=== PATIENT | male | born 1940 | race Caucasian/White ===

== ENCOUNTER → 2017-12-12 13:54 | Outpatient (CLI) | payer MEDICARE, SELFPAY ==
--- NOTE | 2017-12-12 | DI.ECHO.S_ITS ---
[facility]+ [facility] +---------+ : : [address] : [address] : : : : [id number] : : : : Phone: [phone]+ Echocardiogram Report + + :Name: ZANDER INGRAM Study Date: 12/12/2017 Height: 70 in : :[facility] Weight: 194 lb : : Gender: Male BSA: 2.1 m2 : :: 1940 Age: 77 yrs BP: 120/68 mmHg: :Reason For Study: AFIB : :Ordering Physician: Janine : :Sean Performed By: Trinidad Moncada : :Referring: ETHAN CEE : + + Interpretation Summary Afib with controlled rate. Normal LV size, wall thickness, wall motion and LV systolic function. EF is 55-60%. Severe biatrial enlargement. Aortic sclerosis withoput stenosis. Compared to prior study 01/26/2016 aortic sclerosis has gotten worse. Procedure: A two-dimensional transthoracic echocardiogram with color flow and Doppler was performed. The study quality was technically good. Comparison is made with the echocardiogram of 01/26/2016. The patient was in atrial fibrillation with heart rates between 62-80 bpm during the exam. Left Ventricle: The left ventricle is normal in size. There is normal left ventricular wall thickness. The ejection fraction is estimated to be 55-60%. Diastolic function could not be accurately assessed due to atrial fibrillation. Right Ventricle: The right ventricle is moderately dilated. Right ventricular systolic function is mildly reduced. Atria: There is marked biatrial enlargement. Both atria have significantly increased in size since the prior echo exam. There is no Doppler evidence for an interatrial shunt. Mitral Valve: There is a flat closure plane of the the mitral valve leaflets. There is mild mitral regurgitation. Aortic Valve: The aortic valve is trileaflet. The aortic valve opens well. The aortic valve is mildly calcified. There is no aortic valve stenosis. There is trace aortic regurgitation. Tricuspid Valve: The tricuspid valve leaflets are thin and pliable. There is moderate to severe tricuspid regurgitation. The right ventricular systolic pressure is estimated at 34 mmHg assuming a right atrial pressure of 15 mm Hg. Pulmonic Valve: The pulmonic valve is normal in structure and function. There is a trace or physiologic amount of pulmonic regurgitation. Great Vessels: The aortic root is normal size. The ascending aorta is normal in size. The aortic arch is normal in size. The pulmonary artery is normal size. The IVC is dilated (diameter is greater than 2.1 cm) and it collapses less than 50% with a sniff. This suggests a high right atrial pressure of 15 mm Hg. Pericardium/ Pleura There is no pericardial effusion. There is no pleural effusion. MMode/2D Measurements & Calculations LVIDd: 5.2 cm LVOT diam: 2.2 cm LVIDs: 3.7 cm Ao root diam: 3.7 cm FS: 29.7 % asc Aorta Diam: 3.3 cm EPSS: 0.51 cm Ao Arch Diam (distal): 2.5 cm IVSd: 0.75 cm LVPWd: 0.84 cm LV leach. diameter/BSA (cm/m^2): 2.5 LV sys. diameter/BSA (cm/m^2): 1.8 LA A2 area: 57.1 cm2 RA long axis: 10.5 cm LA A4 area: 57.1 cm2 RA area: 76.4 cm2 LA length (vol): 9.0 cm RA vol: 470.5 ml LA vol: 309.0 ml RA : 228.3 ml/m2 LA vol index: 150.0 ml/m2 IVC diam: 3.2 cm RVD1 (basal): 5.7 cm TAPSE: 1.4 cm Doppler Measurements & Calculations Ao V2 max: 123.8 cm/sec LVOT Max Brian: 92.7 cm/sec Ao V2 mean: 90.0 cm/sec LV V1 max P.4 mmHg Ao max P.1 mmHg LV V1 VTI: 15.9 cm Ao mean P.5 mmHg ANANYA(I,D): 2.7 cm2 Ao V2 VTI: 23.0 cm ANANYA(V,D): 2.9 cm2 sev ratio: 0.69 ANANYA indexed to BSA (cm^2/m^2): 1.3 MV E max brian: 116.4 cm/sec TR max brian: 217.6 cm/sec MV dec time: 0.13 sec TR max P.0 mmHg PA V2 max: 78.4 cm/sec PA V2 mean: 50.6 cm/sec PA mean P.2 mmHg Reading Physician:12:44 PM
== END ==
PROVIDERS: PCP Internal Medicine; Visit Provider Orthopaedic Surgery
DX: I48.91 Unspecified atrial fibrillation (principal)
CPT/HCPCS: 93306

== ENCOUNTER → 2018-03-27 08:51 | Outpatient (CLI) | payer MEDICARE, SELFPAY ==
--- NOTE | 2018-03-27 | DI.CT.S_ITS ---
PROCEDURE: CT ABDOMEN PELVIS W CON INDICATIONS: ABDOMINAL PAIN TECHNIQUE: After the administration of oral and intravenous contrast, 5 mm thick sections acquired from the diaphragms to the symphysis. 5 mm thick coronal and sagittal reformats were performed. For radiation dose reduction, the following was used: automated exposure control, adjustment of mA and/or kV according to patient size. COMPARISON: None. FINDINGS: Image quality: Excellent. ABDOMEN: Lung bases: Lung bases are clear. Heart size is enlarged. Solid organs: Liver is demonstrates a 40 mm AP by 29 mm transverse by 27 mm craniocaudal focus of enhancement with what appears to be a central area of decreased enhancement. No priors are available for comparison. Hepatic steatosis is present. Gallbladder is unremarkable. Biliary system is non-dilated. Pancreas enhances normally. Spleen is normal in size and enhancement. No adrenal nodules. Kidneys are normal in size and enhancement, without hydronephrosis. Right renal cyst is present measuring 10 mm. Peritoneum and bowel: Stomach, small bowel, and colon loops are normal in caliber and wall thickness. No free fluid or air. Moderate stool is present without obstruction. Nodes and vessels: No retroperitoneal or mesenteric adenopathy. Aorta and inferior vena cava are normal in caliber. Miscellaneous: No ventral hernias. PELVIS: Genitourinary: Bladder wall thickness is normal. Miscellaneous: Fat-containing inguinal hernias are noted. Bones: No suspicious bony lesions. 8mm sclerotic focus is present within the posterior right iliac. No vertebral body compression fractures. IMPRESSION: 1. Enhancing focus within the right hepatic lobe as above. Appearance is suggestive of hemangioma. However, further evaluation with focused ultrasound or CT with hepatic protocol is recommended, as definitive etiology is indeterminate on the basis of this examination. 2. Prominent stool without obstruction. Dictated by: Airam Mistry M.D. on 03/27/2018 at 13:22 Approved by: Airam Mistry M.D. on 03/27/2018 at 13:36
== END ==
PROVIDERS: PCP Internal Medicine; Visit Provider Internal Medicine Endocrinology, Diabetes & Metabolism
DX: R10.9 Unspecified abdominal pain (principal); K40.90 Unilateral inguinal hernia, without obstruction or gangrene, not specified as recurrent; K76.0 Fatty (change of) liver, not elsewhere classified; N28.1 Cyst of kidney, acquired
CPT/HCPCS: 74177; Q9967

== ENCOUNTER → 2018-06-23 16:48 | Outpatient (CLI) | payer MEDICARE, SELFPAY | PROVIDERS: PCP Internal Medicine; Visit Provider Family Medicine | DX: R30.0 Dysuria (principal) | CPT/HCPCS: 87086 ==